=== PATIENT | male | born 1970 | race Caucasian/White ===

== ENCOUNTER 2019-06-18 00:15 | Day surgery (SDC) | payer BC ==
[~2019-06-18] VITALS: Ht 172.7 cm; Wt 73.0 kg
[2019-06-18 08:20] VITALS: BP 163/89
[2019-06-18] MEDS ORDERED: LIDOCAINE/SOD BICARB 8.4% SYR ID ONE (09:00)
[2019-06-18] MEDS ORDERED: NORMOSOL R SOLN(*) 1000 ML BAG 1,000 ML IV PRN (09:00)
[2019-06-18 10:49] VITALS: BP 127/75
[2019-06-18 11:14] VITALS: BP 141/88
[2019-06-18 11:15] VITALS: BP 116/89
[2019-06-18] MEDS ORDERED: PROPOFOL(*)1000 MG/100 ML VIAL 100 ML ONE (13:31)
== END 2019-06-18 11:25 | disposition home or self-care (01) ==
LOC: OR 00:15
PROVIDERS: ATTEND Family Medicine
DX: Z12.11 Encounter for screening for malignant neoplasm of colon (principal)
CPT/HCPCS: 00812; 45378; J2704